=== PATIENT | female | born 1995 | race Caucasian/White ===

== ENCOUNTER 2020-03-07 13:43 | Emergency (ER) | payer OTHER ==
[2020-03-07] MEDS ORDERED: diphenhydrAMINE 50 MG/ML 1 ML VIAL IVP STA (14:24)
[2020-03-07] MEDS ORDERED: METOCLOPRAMIDE 5 MG/ML 2 ML VIAL IVP STA (14:24)
[2020-03-07] MEDS ORDERED: KETOROLAC 15 MG/ML 1 ML VIAL IVP STA (14:24)
[2020-03-07] MEDS ORDERED: SODIUM CHLORIDE 0.9% 1,000 ML IV STA (14:24)
--- NOTE | 2020-03-07 14:34 | ED ---
Headache HPI - General Chief Complaint: Headache Stated Complaint: Headache Time Seen by Provider: 03/07/20 14:00 Mode of arrival: ambulatory Limitations: no limitations - History of Present Illness Initial Comments: Patient is a 24-year-old female presenting to the emergency Department with complaints of a migraine at 4 days. Patient states she does have a history of migraines and normally only gets 1-2 a month but for the last few weeks she's been getting them almost daily. Patient states she started going to a chiropractor to help with her neck pains and feels like those adjustments are giving her migraines. Patient states they were doing some mild traction on her neck and she started having blurry visions of the abscess. And when she left she started having a migraine. Patient states she can normally control her migraines at home with [id number] medications however those are not working this time. She denies any blurry vision at this time but states significant light sensitivity. She does admit to nausea and vomiting over the last few days. She states she's not been able to eat or drink very much. She denies any fever, chills, chest pains or shortness of breath. She has no further complaints at this time. Upon arrival to the ER, her vital signs are stable. - Related Data Home Medications Medication Instructions Recorded Confirmed [place] 1-20 (21 Day) 1 tab PO DAILY 03/07/20 03/07/20 Previous Rx's Medication Instructions Recorded Butalb/APAP/Caff 50-325-40Mg 1 tab PO Q4H PRN #10 tablet 03/07/20 [Fioricet 50-325-40] Allergies Allergy/AdvReac Type Severity Reaction Status Date / Time No Known Allergies Allergy Verified 03/07/20 15:11 Review of Systems ROS Statement: Those systems with pertinent positive or pertinent negative responses have been documented in the HPI. ROS Other: All systems not noted in ROS Statement are negative. Past Medical History Additional Past Medical History / Comment(s): migraines, kidney stones History of Any Multi-Drug Resistant Organisms: None Reported Additional Past Surgical History / Comment(s): ganglion cyst from wrist, wisdom teth Smoking Status: Vaper Past Alcohol Use History: None Reported Past Drug Use History: None Reported General Exam - General Exam Comments Initial Comments: GENERAL: Patient is well-developed and well-nourished. Patient is nontoxic and in no acute distress, but does appear uncomfortable, sitting in dark room. HEAD: Atraumatic, normocephalic. EYES: Pupils equal round and reactive to light, extraocular movements intact, sclera anicteric, conjunctiva are normal. Eyelids were unremarkable. Light sensitive. ENT: TMs normal, nares patent, oropharynx clear without exudates. Moist mucous membranes. NECK: Normal range of motion, supple without lymphadenopathy or JVD. LUNGS: Unlabored respirations. Breath sounds clear to auscultation bilaterally and equal. No wheezes rales or rhonchi. HEART: Regular rate and rhythm without murmurs, rubs or gallops. ABDOMEN: Soft, nontender, normoactive bowel sounds. No guarding, no rebound. No masses appreciated. : Deferred MUSCULOSKELETAL: Normal extremities with adequate strength and normal range of motion, no pitting or edema. No clubbing or cyanosis. NEUROLOGICAL: Patient is alert and oriented x 3. Motor and sensory are also intact. Cranial nerves II through XII grossly intact. Symmetrical smile. Normal speech, normal gait. PSYCH: Normal mood, normal affect. SKIN: Warm, Dry, normal turgor, no rashes or lesions noted. Limitations: no limitations Course Vital Signs 03/07/20 03/07/20 13:47 16:06 Temperature 98.5 F 97.7 F Pulse Rate 84 71 Respiratory 16 12 Rate Blood Pressure 137/84 136/82 O2 Sat by Pulse 98 99 Oximetry Medical Decision Making - Medical Decision Making Patient is a 24-year-old female here for a migraine 4 days. She has a history of migraines but they becoming more frequent since starting to see a chiropractor for the past week. Her vital signs are stable, her exam is unremarkable, no neural deficits. I did do a CT of the head and neck which showed no acute abnormalities. I did give patient typical migraine cocktail which did improve her symptoms. Upon recheck, patient's pain was down to 2/10. She states she feels compelled for discharge. I did recommend following up with her PCP regarding these continued migraines. I did give her a short prescription to try Fioricet for future migraines. Patient is stable for discharge and she is in agreement with this plan and care. Return parameters were discussed with the patient she verbalized understanding. Disposition Clinical Impression: Headache Disposition: HOME SELF-CARE Condition: Stable Instructions (If sedation given, give patient instructions): Acute Headache (ED) Additional Instructions: Please return to the Emergency Department if symptoms worsen or any other concerns. Trial of Fioricet for future headaches. Follow-up with PCP. Prescriptions: Butalb/APAP/Caff 50-325-40Mg [Fioricet 50-325-40] 1 tab PO Q4H PRN #10 tablet PRN Reason: Headache Is patient prescribed a controlled substance at d/c from ED?: No Referrals: Gaye Basilio MD [Primary Care Provider] - 1-2 days
--- NOTE | 2020-03-07 15:23 | CT ---
EXAMINATION TYPE: CT brain herbertine wo con DATE OF EXAM: 03/07/2020 COMPARISON: None HISTORY: Head and neck pain without injury. History of migraines. CT DLP: 1226 mGycm Automated exposure control for dose reduction was used. TECHNIQUE: CT scan of the head and cervical spine are performed without contrast. FINDINGS: There is no acute intracranial hemorrhage, mass effect, or midline shift identified. No extra-axial fluid collection. The ventricles and sulci are within normal limits in size. The globes are grossly symmetric. The visualized sinuses and mastoid air cells are clear. No depressed calvarial fracture. There is leftward deviation of the nasal septum with large 8mm left sided nasal spur. Cervical spine is visualized in its entirety from C1 through upper thoracic levels and demonstrates s atisfactory alignment without evidence of acute fracture or dislocation. Prevertebral soft tissue ap pears within normal limits. The C1-C2 articulation is unremarkable. IMPRESSION: 1. There is no acute fracture or dislocation evident in the cervical spine. 2. No acute intracranial hemorrhage, mass effect, or midline shift is seen.
[2020-03-07 16:08] VITALS: BP 136/82; PULSE 71; RESP 12; TEMP 97.7
== END 2020-03-07 16:10 | disposition home or self-care (01) ==
LOC: EC 13:43
DX: G43.909 Migraine, unspecified, not intractable, without status migrainosus (principal); M54.2 Cervicalgia; F17.290 Nicotine dependence, other tobacco product, uncomplicated
CPT/HCPCS: 99283; 96374; 96375 ×2; 96361; 72125; 70450; J1200; J2765; J1885

== ENCOUNTER 2024-12-07 06:55 | Day surgery (SDC) | payer OTHER ==
[2024-12-07 07:59] VITALS: RESP 18; TEMP 97.8
[2024-12-07] MEDS: SODIUM CHLORIDE 0.9% 1,000 ML IV SCH (07:59)
[2024-12-07] MEDS: IV FLUID CONTINUATION 1,000 ML IV ONE (08:00)
[2024-12-07 09:25] VITALS: BP 125/91; PULSE 65
--- NOTE | 2024-12-07 11:05 | P.EPPROC ---
- EP Procedure Note Electrophysiology Procedure Note: Diagnosis: Recurrent syncope 12 EKG shows sinus rhythm with PACs. Normal [place] narrow QRS normal ST segments normal QT interval Tilt table test per protocol Baseline blood pressure 127/74 mmHg, baseline heart rate 68 beats minute Patient was tilted upright in angle of 70 degrees per protocol No change in blood pressure throughout the test. Mild increase in heart rate to between 90 to 100 bpm However her heart rate fluctuated between the 80s and 90s She was noted to be very anxious throughout the test. On several occasions she stated she was going to pass out and had weakness in the legs, as well as ringing in the ears and blurred vision with normal blood pressure and heart rates between 80 to 90 bpm Impression Normal twelve-lead EKG with PACs Possible mild orthostatic intolerance No evidence for neurocardiogenic syncope/phenomenon Patient was noted to be anxious throughout the test
== END 2024-12-07 09:24 | disposition home or self-care (01) ==
LOC: CATHEP 06:55
PROVIDERS: ATTEND Internal Medicine Clinical Cardiac Electrophysiology
DX: R55 Syncope and collapse (principal); Z87.891 Personal history of nicotine dependence
CPT/HCPCS: 81025; 93660